=== PATIENT | male | born 2000 | race African-American/Black ===

== ENCOUNTER → 2019-01-17 | Emergency (ER) | payer SELFPAY ==
[~2019-01-17] VITALS: Ht 180.3 cm; Wt 65.8 kg
[2019-01-17 12:07] VITALS: BP 130/70
--- NOTE | 2019-01-17 12:38 | NUR ---
DC HOME INSTRUCTION GIVEN AGREES TO CALL PMD IN 2 DAYS VERBALIZED UNDERSTANDING PRESCRIPTION GIVEN
== END | disposition home or self-care (01) ==
LOC: ER 12:03
DX: M54.42 Lumbago with sciatica, left side (principal)

== ENCOUNTER 2019-01-25 11:53 | Emergency (ER) | payer SELFPAY ==
[~2019-01-25] VITALS: Ht 177.8 cm; Wt 65.8 kg
[2019-01-25 12:16] VITALS: BP 132/80
== END 2019-01-25 12:40 | disposition home or self-care (01) ==
LOC: ER 11:55
DX: S60.021A Contusion of right index finger without damage to nail, initial encounter (principal); W20.8XXA Other cause of strike by thrown, projected or falling object, initial encounter; Y93.89 Activity, other specified; Y92.89 Other specified places as the place of occurrence of the external cause; Y99.0 Civilian activity done for income or pay